=== PATIENT | male | born 1970 | race Caucasian/White ===

== ENCOUNTER 2024-07-28 10:20 | Outpatient (AMB) | payer BC, SELFPAY ==
--- OUTSIDE RECORDS SUMMARY | 2024-07-28 10:36 | XMS_ITS | Clinical Summary ---
Author Organization [facility] Address [address] [place] [address] Phone Care Team Providers Care Freight Breaker Name Role Phone Kenroy THOMAS Darby Casandra Mcpherson [phone] Conditions or Problems Problem Name Problem Code Onset Date Status Entry Date Provider Comment Standard Description Annotate ALLERGIC CONTACT DERMATITIS 219172682 (SNOMED CT) 02/10 Active 02/10 Joanne Chandler MD Allergic contact dermatitis PSORIASIS VULGARIS 130708886 (SNOMED CT) 09/30 Active 09/30 Lorena Monroy DCNP Psoriasis vulgaris OTHER VIRAL WARTS B07.8 (ICD-10-CM ) 09/30 Active 09/30 Lorena Monroy DCNP Other viral warts ECZEMA 94859941 (SNOMED CT) 09/02 Active 09/02 Lorena Monroy DCNP Eczema NEOPLASM OF UNCERTAIN BEHAVIOR OF SKIN 67266929 (SNOMED CT) 09/02 Active 09/02 Lorena Monroy DCNP Neoplasm of uncertain behavior of skin ACTINIC SKIN DAMAGE 99447186 (SNOMED CT) 09/02 Active 09/02 Lorena Monroy DCNP Solar degeneration FAMILY HISTORY OF MELANOMA 109166211 (SNOMED CT) 09/02 Active 09/02 Lorena Monroy DCNP Family history of malignant melanoma SEBORRHEIC KERATOSIS 679421225 (SNOMED CT) 07/22 Active 07/22 Lorena Monroy DCNP Senile hyperkeratosis DISTURBANCE OF SKIN SENSATION 01559061 (SNOMED CT) 07/22 Active 07/22 Lorena Monroy DCNP Skin sensation disturbance SEBORRHEIC KERATOSIS, INFLAMED 908745633 (SNOMED CT) 08/28 Inactive 08/28 Elizabeth Cruz MD Inflamed seborrheic keratosis MELANOCYTIC NEVI OF TRUNK D22.5 (ICD-10-CM ) 08/20 Active 08/20 Elizabeth Cruz MD Melanocytic nevi of trunk INFLAMED SEBORRHEIC KERATOSIS L82.0 (ICD-10-CM ) 08/20 Active 08/20 Elizabeth Cruz MD Inflamed seborrheic keratosis SEBORRHEIC KERATOSIS, INFLAMED 534178527 (SNOMED CT) 08/28 Removed 08/28 Elizabeth Cruz MD Inflamed seborrheic keratosis Medications Medication Instructions Start Date Stop Date Generic Name NDC Provider HALOBETASOL PROPIONATE 0.05 % OINT Apply to elbows and left hand bid for no more than 2 weeks halobetasol propionate [id number] Joanne Chandler MD HALOBETASOL PROPIONATE 0.05 % OINT Apply to elbows and left hand bid for no more than 2 weeks halobetasol propionate [id number] Elizabeth Cruz MD ALCLOMETASONE DIPROPIONATE 0.05 % CREA Apply to ears twice a day for no more than 7 days alclometasone 77648866277 Elizabeth Cruz MD ALCLOMETASONE DIPROPIONATE 0.05 % CREA Apply to ears twice a day for no more than 7 days alclometasone 24360566391 Lorena THOMAS HALOBETASOL PROPIONATE 0.05 % OINT Apply to elbows and left hand bid for no more than 2 weeks halobetasol propionate 11396628821 Lorena THOMAS DESONIDE 0.05 % OINT Apply twice a day desonide 37693634868 Lorena THOMAS MULTIVITAMINS ORAL CAPSULE Take 1 by mouth once a day MULTIVITAMINS ORAL CAPSULE Kaylee Justus [employer] BETAMETHASONE DIPROPIONATE AUG 0.05 % CREA Apply to elbows bid for no more than 2 weeks, prn. BETAMETHASONE DIPROPIONATE AUG 14775870316 Lorena THOMAS DESONIDE 0.05 % OINT apply to affected area on ears BID for no more than 7 days. DESONIDE 44228701928 Lorena THOMAS MULTIVITAMINS ORAL CAPSULE take one by mouth daily MULTIPLE VITAMIN 01086269070 Lorena THOMAS Medications Administered No information available. Allergies, Adverse Reactions, Alerts Allergy Name Reaction Description Start Date Severity Status Provider DOGS Critical No Longer Active Lorena Monroy MARTHA DOGS Critical No Longer Active Elizabeth Cruz MD Observed no known allergies at Results No information available. Plan of Care Type Date Detail Pending order Patient encounte r procedure Pending order Patient encounte r procedure Pending order Patient encounte r procedure Pending order Patient encounte r procedure Pending order Patient encounte r procedure Pending order Patient encounte r procedure Pending order A - Winnie BS Pending order Patient encounte r procedure Pending order Patient encounte r procedure Pending order Patient encounte r procedure Pending order A - Winnie BS Pending order Patient encounte r procedure Pending order Casandra CARSON Patient education Medications Patient education seborrheic%20k eratosis Procedures Code Procedure Name Date Entry Date [facility]-[id number] Patient encounter procedure [facility]-[id number] Patient encounter procedure ELLIOT CARSON Vital Signs No information available. Immunizations No information available. Advance Directives No information available.
--- NOTE | 2024-07-28 10:45 | HO.SPINEOV ---
Intake Visit Reasons: lower back pain Intake Note: Mr. Bernal is here today c/o low back pain. MRI done @ [facility] in [place] (brought flash drive & CT Scan disc). Information Technology Administrator Required: No Assessment & Plan Assessment & Plan (1) Disc disease, degenerative, lumbar or lumbosacral: Code(s): M51.379 - Other intervertebral disc degeneration, lumbosacral region without mention of lumbar back pain or lower extremity pain Category: Medical Qualifiers: Disc-related pain type: discogenic back pain and lower extremity pain Qualified Code(s): M51.372 - Other intervertebral disc degeneration, lumbosacral region with discogenic back pain and lower extremity pain (2) Back pain with left-sided sciatica: Code(s): M54.32 - Sciatica, left side Category: Medical Plan Dear colleague Thank you for referring Gonzales Bernal to the office today with a chief complaint of progressive chronic low back pain. HPI: This 54-year-old male has always been dealing with back pain since his 20s. He was lifting very heavy objects during that time and was doing lifts. Over his life he always continued to have back pain which was manageable. However this change when he came into his 50s. The back pain became a daily phenomena and interferes with his daily activities. It also wakes him up in his sleep which was never the case before. He can not longer go for hikes or walks. It really affects his quality of life. The pain can radiate down his left posterior thigh. The following conservative treatment options were tried without success antiinflammatories, tylenol, physical therapy, cortisone shots, chiropractic therapy, acupuncture, RF ablation PMH: Right shoulder surgery Medications: Gabapentin Allergies: NKDA Social history: Employed. . Nonsmoker Physical Exam: Height 5'10 weight 178 lb. There is pain on palpation of the lumbar spine. Flexion-extension is painful again in the lumbar sacral area. Neurological exam is intact for motor sensation and reflexes. Radiological Studies: MRI done at [facility] in 2023 shows severe lumbar degenerative disc disease L5-S1 with Modic changes. The remainder of the lumbar spine is essentially normal for his age. An x-ray of the lumbar spine shows again the collapsed L5-S1 disc. Impression/Plan: This patient is suffering from progressive severe low back pain most likely associated with the severe degenerative disc disease L5-S1. The patient research the lot about possible surgical techniques. He favors an artificial disc over a fusion. I am not opposed to performing an artificial disc placement in this patient. However, if the insurance company denies then a stand-alone cage with anterior fixation will be done. I described the procedures and he is tentatively scheduled for 09/12/2024. He will see preoperatively. Thank you for allowing me to participate in your patients care. total time spent was 60 minutes in counseling ,coordination of plan, personal review of imaging, surgical decision making and subsequent plan Lawrence Oconnor MD, PhD Sp[facility] Trained Neurosurgeon Director, [facility] Coding Level of Care Code New Pt Level 5 (45203) Diagnoses Degeneration of intervertebral disc of lumbosacral region with discogenic back pain and lower extremity pain M51.372 Disc-related pain type: discogenic back pain and lower extremity pain Back pain with left-sided sciatica M54.32
== END 2024-07-28 12:01 | disposition home or self-care (01) ==
PROVIDERS: PCP Nurse Practitioner Family; Visit Provider Neurological Surgery
DX: M51.372 Other intervertebral disc degeneration, lumbosacral region with discogenic back pain and lower extremity pain (principal); M54.32 Sciatica, left side
CPT/HCPCS: 99205